=== PATIENT | female | born 1945 | race Caucasian/White ===

== ENCOUNTER 2021-02-28 09:56 | Emergency (ER) | payer OTHER ==
[~2021-02-28] VITALS: Ht 147.3 cm; Wt 63.5 kg
[2021-02-28 10:00] VITALS: BP 153/82
[2021-02-28] MEDS ORDERED: ACETAMINOPHEN EXTRA STRENGTH 500 MG TAB PO ONE (10:25)
[2021-02-28 11:20] VITALS: BP 153/82
== END 2021-02-28 11:17 | disposition home or self-care (01) ==
LOC: MED 09:56
DX: M25.561 Pain in right knee (principal); R07.89 Other chest pain; E11.9 Type 2 diabetes mellitus without complications; I10 Essential (primary) hypertension; E03.9 Hypothyroidism, unspecified; V89.2XXA Person injured in unspecified motor-vehicle accident, traffic, initial encounter; Y93.89 Activity, other specified; Y92.89 Other specified places as the place of occurrence of the external cause; Y99.8 Other external cause status
CPT/HCPCS: 71046; 73562; 99284